=== PATIENT | male | born 1990 | race American Indian/Alaskan Native ===

== ENCOUNTER 2019-03-31 09:17 | Emergency (ER) | payer SELFPAY ==
[2019-03-31 09:39] VITALS: BP 118/87
--- NOTE | 2019-03-31 12:32 | XRay Report ---
CHEST 2 VIEWS INDICATION / CLINICAL INFORMATION: cough. : Symptoms for 4 days. COMPARISON: None available. FINDINGS: SUPPORT DEVICES: None. HEART / MEDIASTINUM: No significant abnormality. LUNGS / PLEURA: No significant pulmonary or pleural abnormality. No pneumothorax. ADDITIONAL FINDINGS: No significant additional findings. IMPRESSION: 1. No acute findings. Signer Name: Devang Macias MD Signed: 03/31/2019 12:27 PM Workstation Name: [id number]
[2019-03-31] MEDS ORDERED: BENZONATATE 100 MG CAP PO ONE (12:50)
[2019-03-31] MEDS ORDERED: IBUPROFEN 800 MG TAB PO ONE (12:50)
--- NOTE | 2019-03-31 13:31 | Emergency Department Report ---
Upper Respiratory HPI - HPI Chief Complaint: Upper Respiratory Infection Stated Complaint: COLD SX Time Seen by Provider: 03/31/19 11:35 Duration: 4 Days URI Symptoms: Rhinorrhea: Yes, Sore Throat: No, Ear Pain: No, Cough: Yes, Shortness of Breath: No, Sick Contacts: No, Unable to Take Fluids: No, Urine Output Abnormal: No, Listless Behavior: No Other History: This is a 28-year-old male nontoxic, well nourished in appearance, no acute signs of distress presents to the ED with c/o of productive cough, body aches, rhinorrhea, nasal congestion x4 days. Patient describes productive cough as yellow mucus production. Patient denies any sick contact. Patient denies any recent travels, long car, recent hospital stays. Patient denies any calf pain or calf tenderness. Patient denies any chest pain, short of breath, fever, chills, nausea, vomiting, hemoptysis, numbness, tingling, headache or stiff neck. Denies any allergies. - Home Meds and Allergies Allergies/Adverse Reactions: Allergies Allergy/AdvReac Type Severity Reaction Status Date / Time No Known Allergies Allergy Verified 03/31/19 09:19 ED Review of Systems ROS: Stated complaint: COLD SX Other details as noted in HPI Constitutional: denies: chills, fever Eyes: denies: eye pain, eye discharge, vision change ENT: congestion. denies: ear pain, throat pain Respiratory: cough. denies: shortness of breath, wheezing Cardiovascular: denies: chest pain, palpitations Endocrine: no symptoms reported Gastrointestinal: denies: abdominal pain, nausea, diarrhea Genitourinary: denies: urgency, dysuria Musculoskeletal: denies: back pain, joint swelling, arthralgia Skin: denies: rash, lesions Neurological: denies: headache, weakness, paresthesias Psychiatric: denies: anxiety, depression Hematological/Lymphatic: denies: easy bleeding, easy bruising ED Past Medical Hx - Past Medical History Previous Medical History?: No - Surgical History Past Surgical History?: No ED Bronchiolitis Physical Exam - Exam General: Vital signs noted. No distress. Alert and acting appropriately. Neurologic: Alert and oriented, no deficits. Musculoskeletal: Unremarkable. ED Bronchiolitis Tests - Testing Testing: CXR: Normal/Negative ED Physical Exam - General Limitations: No Limitations General appearance: alert, in no apparent distress - Head Head exam: Present: atraumatic, normocephalic - Eye Eye exam: Present: normal appearance - ENT ENT exam: Present: normal exam, normal orophraynx, TM's normal bilaterally, normal external ear exam - Neck Neck exam: Present: normal inspection, full ROM. Absent: tenderness, meningismus, lymphadenopathy - Respiratory Respiratory exam: Present: normal lung sounds bilaterally. Absent: respiratory distress, wheezes, rales, rhonchi, stridor, chest wall tenderness, accessory muscle use, decreased breath sounds, prolonged expiratory - Cardiovascular Cardiovascular Exam: Present: regular rate, normal rhythm, normal heart sounds. Absent: bradycardia, tachycardia, irregular rhythm, systolic murmur, diastolic murmur, rubs, gallop - Extremities Exam Extremities exam: Present: normal inspection, full ROM - Back Exam Back exam: Present: normal inspection, full ROM. Absent: tenderness - Neurological Exam Neurological exam: Present: alert, oriented X3, normal gait - Psychiatric Psychiatric exam: Present: normal affect, normal mood - Skin Skin exam: Present: warm, dry, intact, normal color. Absent: rash ED Course Vital Signs 03/31/19 09:38 Temperature 98.4 F Pulse Rate 83 Respiratory 18 Rate Blood Pressure 118/87 [Right] O2 Sat by Pulse 99 Oximetry - Reevaluation(s) Reevaluation #1: 03/31/19 13:28 Patient is speaking in full sentences with no signs of distress noted. ED Medical Decision Making - Medical Decision Making This is a 28-year-old female that presents with URI symptoms. Patient is stable and was examined by me. Chest x-ray has been obtained and dictated by radiologist with normal exam. Patient is notified of x-ray results with no questions noted. Patient stated he has to leave, even though I educated and instructed the patient of my concerns and for the results of x-rays and further treatment evaluation if needed the patient still refused. Patient was instructed to Follow-up with a primary care doctor [facility] or if symptoms worsen and continue return to emergency room as soon as possible. At time of discharge, the patient does not seem toxic or ill in appearance. No acute signs of distress noted. Patient agrees to discharge treatment plan of care. No further questions noted by the patient. Critical care attestation.: If time is entered above; I have spent that time in minutes in the direct care of this critically ill patient, excluding procedure time. ED Disposition Clinical Impression: Upper respiratory infection, acute Disposition: DC-07 LEFT AGAINST MED ADVICE Is pt being admited?: No Does the pt Need Aspirin: No Condition: Undetermined Additional Instructions: Follow-up with a primary care doctor H[facility] or if symptoms worsen and continue return to emergency room as soon as possible. Your condition may be serious as instructed and educated today in the ER but you decided to leave AGAINST MEDICAL ADVICE. It is highly recommended to see a provider as soon as possible to rule out serious complications that was described to you during your ED stay. Referrals: PRIMARY CAREMD [Primary Care Provider] - CATALINA MCALLISTER MD [Staff Physician] - [facility] [Outside] - [facility]
== END 2019-03-31 13:49 | disposition left against medical advice (07) ==
LOC: ED 09:17
DX: J06.9 Acute upper respiratory infection, unspecified (principal)
CPT/HCPCS: 71046

== ENCOUNTER 2019-04-19 09:08 | Emergency (ER) | payer SELFPAY ==
[2019-04-19 09:13] VITALS: BP 125/73
--- NOTE | 2019-04-19 16:28 | Emergency Department Report ---
Chief Complaint: Extremity Problem,Nontraumatic Stated Complaint: RT SIDE PAIN Time Seen by Provider: 04/19/19 11:12 - HPI History of Present Illness: 28 Year old -[place] male presents to the emergency room complaining of pain to his right lateral foot for months. Patient states that the pain is worse when he walks up the incline. Patient denies any injury. - Exam Vital Signs: Vital Signs 04/19/19 09:09 Temperature 98.1 F Pulse Rate 118 H Respiratory 18 Rate Blood Pressure 125/73 O2 Sat by Pulse 100 Oximetry Physical Exam: Alert and oriented 3 no acute distress nontoxic. Right lower extremity right foot callus thickening of the skin on the right lateral aspect of the foot. Now tenderness nonerythematous no abscess appreciated. He is ambulating without difficulty. MSE screening note: Focused history and physical exam performed. Due to findings the following was ordered: 28 Year old -[place] male presents to the emergency room complaining of pain to his right lateral foot for months. Patient states that the pain is worse when he walks up the incline. Patient denies any injury. ED Disposition for [facility] Clinical Impression: Callus of foot Disposition: Z-07 MED SCREENING EXAM-LEFT Is pt being admited?: No Does the pt Need Aspirin: No Condition: Stable Additional Instructions: Follow-up with a refrigeration installer for resource recovery specialist. Referrals: CHAVEZ MIKE MD [Primary Care Provider] - 3-5 Days [facility] [Provider Group] - 3-5 Days
== END 2019-04-19 15:30 | disposition left against medical advice (07) ==
LOC: ED 09:08
DX: L84 Corns and callosities (principal)

== ENCOUNTER 2019-04-30 07:21 | Emergency (ER) | payer SELFPAY ==
[2019-04-30 07:35] VITALS: BP 122/72
== END 2019-04-30 08:50 | disposition left against medical advice (07) ==
LOC: ED 07:21
DX: M79.671 Pain in right foot (principal); Z53.21 Procedure and treatment not carried out due to patient leaving prior to being seen by health care provider

== ENCOUNTER 2019-07-13 19:55 | Emergency (ER) | payer SELFPAY ==
[2019-07-13 20:14] VITALS: BP 126/85
--- NOTE | 2019-07-13 21:12 | XRay Report ---
CHEST 1 VIEW INDICATION / CLINICAL INFORMATION: cough, subjective fever. COMPARISON: 03/31/2019 FINDINGS: SUPPORT DEVICES: None. HEART / MEDIASTINUM: No significant abnormality. LUNGS / PLEURA: No significant pulmonary or pleural abnormality. No pneumothorax. ADDITIONAL FINDINGS: No significant additional findings. IMPRESSION: No significant abnormality or change from 03/31/2019 Signer Name: Wayne Delcid MD FACR Signed: 07/13/2019 9:08 PM Workstation Name: [id number]
--- NOTE | 2019-07-13 21:18 | Emergency Department Report ---
Chief Complaint: Upper Respiratory Infection Stated Complaint: FEVER/COUGH Time Seen by Provider: 07/13/19 20:27 - HPI History of Present Illness: Patient is a 28-year-old male presents emergency room with complaints of a cough that began 3 days ago. He states that he just generally does not feel well. He states that he had one episode of vomiting. He has been able to tolerate p.o. intake. He denies any diarrhea, shortness of breath, chest pain. He states he had a subjective fever but has not taken anything for it and does not have a fever currently. He denies any recent travel. He states he has had a sick contact but has not come into contact with anyone with known COVID He denies any past medical history or allergies to medications. He states he is a smoker and drinker. Vitals are normal On exam: Non toxic appearing, no acute distress atraumatic, normocephalic normal appearance of the eyes, PERRL, EOMI, no periorbital edema or ecchymosis moist mucus membranes, normal oropharynx, no tonsillar hypertrophy or exudates, uvula is midline, normal nasal turbinates, normal TMs and canals bilaterally regular heart rate and rhythm, no gallops, no rubs, no murmurs breath sounds are clear bilaterally, no w/r/r, no respiratory distress, no accessory muscle use, no stridor A&O x4, no focal neuro deficit skin is warm, dry, intact Chest x-ray with no acute process PERC criteria negative for PE No clinical signs symptoms of pneumonia Patient has not had any travel or known contacts with COVID no tachycardia, afebrile, no hypoxia Medical screening examination performed and there is no threat to life or limb at this time Discussed supportive care and symptomatic treatment with patient Discussed the importance of increasing his hydration Discussed strict return precautions with patient Patient given primary care doctor to follow-up with - Exam Vital Signs: Vital Signs 07/13/19 20:10 Temperature 98.1 F Pulse Rate 98 H Respiratory 20 Rate Blood Pressure 126/85 O2 Sat by Pulse 96 Oximetry MSE screening note: Focused history and physical exam performed. ED Disposition for [facility] Clinical Impression: Cough, Viral syndrome Disposition: MED SCREENING EXAM-LEFT Is pt being admited?: No Does the pt Need Aspirin: No Condition: Stable Instructions: Viral Syndrome (ED) Additional Instructions: Increase your water intake. May take Tylenol if experiencing a fever of 100.4 or greater. May take [id number] Mucinex or Robitussin for your cough. Follow-up with a primary care doctor. Return to the emergency room for any new or worsening symptoms including but not limited to shortness of breath, difficulty breathing, chest pain, unable to tolerate by mouth intake, high fevers despite Tylenol therapy, etc. Referrals: CATALINA BURROWS MD [Staff Physician] - 2-3 Days [facility] [Provider Group] - 2-3 Days [facility] [Outside] - 2-3 Days [facility] [Outside] - 2-3 Days Time of Disposition: 21:18 Print Language: [place]LAND[place]
== END 2019-07-13 21:25 | disposition left against medical advice (07) ==
LOC: ED 19:55
DX: B34.9 Viral infection, unspecified (principal); R05 Cough
CPT/HCPCS: 71046; 99283